=== PATIENT | male | born 1985 | race Native Hawaiian/Other Pacific Islander ===

== ENCOUNTER 2016-11-15 10:55 | Outpatient (CLI) | payer OTHER | END 2016-11-15 11:55 | disposition home or self-care (01) | LOC: RAD 10:55 | DX: J01.91 Acute recurrent sinusitis, unspecified (principal) ==

== ENCOUNTER 2017-11-04 10:38 | Outpatient (CLI) | payer OTHER | END 2017-11-04 22:18 | disposition home or self-care (01) | LOC: RAD 10:38 | DX: M79.672 Pain in left foot (principal) ==

== ENCOUNTER 2018-03-30 09:10 | Outpatient (CLI) | payer OTHER | END 2018-03-30 20:29 | disposition home or self-care (01) | LOC: RAD 09:10 | DX: M25.561 Pain in right knee (principal) ==

== ENCOUNTER 2019-03-08 16:41 | Emergency (ER) | payer OTHER ==
[~2019-03-08] VITALS: Ht 182.9 cm; Wt 65.3 kg
[2019-03-08 16:50] VITALS: BP 121/71; TEMP 97.8
== END 2019-03-08 18:33 | disposition home or self-care (01) ==
LOC: ED 16:41
DX: J32.0 Chronic maxillary sinusitis (principal); F17.210 Nicotine dependence, cigarettes, uncomplicated
CPT/HCPCS: 99283

== ENCOUNTER 2021-09-25 17:59 | Emergency (ER) | payer OTHER ==
[~2021-09-25] VITALS: Ht 182.9 cm; Wt 65.3 kg
[2021-09-25] MEDS ORDERED: LEVOFLOXACIN500 MG PO (23:05)
[2021-09-25 23:20] VITALS: BP 111/71; TEMP 97.5
== END 2021-09-25 23:25 | disposition home or self-care (01) ==
LOC: ED 17:59
DX: H65.193 Other acute nonsuppurative otitis media, bilateral (principal); J32.8 Other chronic sinusitis; H70.93 Unspecified mastoiditis, bilateral; F17.210 Nicotine dependence, cigarettes, uncomplicated; W22.8XXA Striking against or struck by other objects, initial encounter; Y92.89 Other specified places as the place of occurrence of the external cause
CPT/HCPCS: 36415; 87040; 96374; 96375; 99284; J1956; J2270; J2405